=== PATIENT | female | born 1975 | race Caucasian/White ===

== ENCOUNTER 2017-10-13 15:57 | Emergency (ER) | payer OTHER ==
--- NOTE | 2017-10-13 16:18 | PDOC ---
Rapid Medical Evaluation Time Seen by Provider: 10/13/17 16:15 Medical Evaluation: Allergies Allergy/AdvReac Type Severity Reaction Status Date / Time No Known Allergies Allergy Verified 10/13/17 16:14 10/13/17 16:15 I have performed a brief in-person evaluation of this patient. The patient presents with a chief complaint of: at neurology's office for headache. elevated bp in office. sent to ed Pertinent physical exam findings: afebrile, 182/111, hx htn, takes meds daily, no wt change no dosing change, NSR I have ordered the following: cbc, comp, ekg, ua, hcg urine, cxr The patient will proceed to the ED for further evaluation.
[2017-10-13 16:19] VITALS: BMI 30.2
[2017-10-13 16:38] LABS: BASOPHIL 0.8 % (0-2.0); EOSINOPHIL 1.6 % (0-4.5); MCH 31.2 pg (25.7-33.7); MCHC 34.4 g/dl (32.0-36.0); MEAN CELL VOLUME 90.6 fl (80-96); NEUTROPHILS 44.9 % (42.8-82.8); RDW 13.9 % (11.6-15.6); WHITE BLOOD COUNT 7.4 K/mm3 (4.0-10.0)
[2017-10-13 16:44] LABS: URINE APPEARANCE CLEAR; URINE BILIRUBIN NEGATIVE (NEGATIVE); URINE BLOOD NEGATIVE (NEGATIVE); URINE COLOR STRAW; URINE GLUCOSE (UA) NEGATIVE (NEGATIVE); URINE KETONE NEGATIVE (NEGATIVE); URINE NITRITE NEGATIVE (NEGATIVE); URINE PROTEIN NEGATIVE (NEGATIVE); URINE UROBILINOGEN NEGATIVE mg/dL (0.2-1.0)
[2017-10-13 17:36] LABS: PLATELET COUNT 171 K/MM3 (134-434)
[2017-10-13 18:07] LABS: ALBUMIN 4.2 g/dl (3.4-5.0); ANION GAP 9 (8-16); BILIRUBIN,TOTAL 0.3 mg/dL (0.2-1.0); CALCIUM 8.5 mg/dL (8.5-10.1); CO2 26 mmol/L (21-32); CREATININE 0.6 mg/dL (0.55-1.02); GLUCOSE,RANDOM 84 mg/dL (74-106); SGPT/ALT 21 U/L (12-78); TOT PROT 7.8 g/dl (6.4-8.2)
[2017-10-13 18:10] LABS: ALK PHOS 82 U/L (45-117); CPK 100 IU/L (26-192); TROPONIN I < 0.02 ng/ml (0.00-0.05)
[2017-10-13 18:21] LABS: SGOT/AST 18 U/L (15-37)
[2017-10-13 19:39] LABS: URINE LEUK ESTERASE Negative (NEGATIVE)
[2017-10-13] MEDS ORDERED: ACETAMINOPHEN 325 MG TABLET (FP) PO ONE (19:41)
--- NOTE | 2017-10-13 19:42 | PDOC ---
History of Present Illness - General History Source: Patient Exam Limitations: No Limitations - History of Present Illness Initial Comments: 10/13/17 19:54 The patient is a 42 year old female, with a significant past medical history of HTN, asthma, migraines, gastritis and vertigo, who presents to the emergency department with high blood pressure. She reports that she was seeing a neurologist today for a headache that she has been having for the last couple of days. She reports that her headache is currently mild, which she describes as a heavy head sensation at the back of her head. While at the neurologists office the patient's blood pressure was 182/111, prompting the physician to send the patient to the ED. The patient denies chest pain, shortness of breath, and dizziness. Denies fever , chills, nausea, vomit, diarrhea and constipation. Allergies: None Past surgical history: Right ovary removal, tubal ligation Social history: Occasional alcohol use. No tobacco or drug use reported <Sung Hernandez - Last Filed: 10/13/17 19:54> <Rosemarie Miramontes - Last Filed: 10/14/17 03:20> - General Chief Complaint: Blood Pressure Problem Stated Complaint: ELEVATED BP (PCP SENT) Time Seen by Provider: 10/13/17 16:15 Past History <Sung Hernandez - Last Filed: 10/13/17 19:54> - Past Medical History COPD: No Disorders: Yes (gastritis) HTN: Yes Other medical history: migranes/vertigo, sinisitis - Immunization History Immunization Up to Date: Yes - Suicide/Smoking/Psychosocial Hx Smoking History: Never smoked Have you smoked in the past 12 months: No Information on smoking cessation initiated: No Hx Alcohol Use: No Drug/Substance Use Hx: No Substance Use Type: None <Rosemarie Miramontes - Last Filed: 10/14/17 03:20> - Past Medical History Allergies/Adverse Reactions: Allergies Allergy/AdvReac Type Severity Reaction Status Date / Time No Known Allergies Allergy Verified 10/13/17 16:14 Home Medications: Ambulatory Orders Nifedipine [Nifedipine ER] 0 mg PO DAILY 10/13/17 Review of Systems - Review of Systems Able to Perform ROS?: Yes Comments:: 10/13/17 19:54 GENERAL/CONSTITUTIONAL: No fever or chills. No weakness. HEAD, EYES, EARS, NOSE AND THROAT: No change in vision. No ear pain or discharge. No sore throat.- CARDIOVASCULAR: No chest pain or shortness of breath RESPIRATORY: No cough, wheezing, or hemoptysis. GASTROINTESTINAL: No nausea, vomiting, diarrhea or constipation. GENITOURINARY: No dysuria, frequency, or change in urination. MUSCULOSKELETAL: No joint or muscle swelling or pain. No neck or back pain. SKIN: No rash NEUROLOGIC: (+) Headache. No vertigo, loss of consciousness, or change in strength/sensation. ENDOCRINE: No increased thirst. No abnormal weight change HEMATOLOGIC/LYMPHATIC: No anemia, easy bleeding, or history of blood clots. ALLERGIC/IMMUNOLOGIC: No hives or skin allergy. <Sung Hernandez - Last Filed: 10/13/17 19:54> *Physical Exam - Vital Signs Last Vital Signs Temp Pulse Resp BP Pulse Ox 98.2 F 77 16 182/111 100 10/13/17 16:15 10/13/17 16:15 10/13/17 16:15 10/13/17 16:15 10/13/17 16:15 - Physical Exam Comments: 10/13/17 19:54 GENERAL: Awake, alert, and fully oriented, in no acute distress HEAD: No signs of trauma, normocephalic, atraumatic EYES: PERRLA, EOMI, sclera anicteric, conjunctiva clear ENT: Auricles normal inspection, hearing grossly normal, nares patent, oropharynx clear without exudates. Moist mucosa NECK: Normal ROM, supple, no lymphadenopathy, JVD, or masses LUNGS: No distress, speaks full sentences, clear to auscultation bilaterally HEART: Regular rate and rhythm, normal S1 and S2, no murmurs, rubs or gallops, peripheral pulses normal and equal bilaterally. ABDOMEN: Soft, nontender, normoactive bowel sounds. No guarding, no rebound. No masses EXTREMITIES : Normal inspection, Normal range of motion, no edema. No clubbing or cyanosis. NEUROLOGICAL: Cranial nerves II through XII grossly intact. Normal speech, normal gait, no focal sensorimotor deficits SKIN: Warm, Dry, normal turgor, no rashes or lesions noted. <Sung Hernandez - Last Filed: 10/13/17 19:54> - Vital Signs Last Vital Signs Temp Pulse Resp BP Pulse Ox 98.2 F 77 16 182/111 100 10/13/17 16:15 10/13/17 16:15 10/13/17 16:15 10/13/17 16:15 10/13/17 16:15 <KulwinderRosemariekelly Workman - Last Filed: 10/14/17 03:20> ED Treatment Course - LABORATORY CBC & Chemistry Diagram: 10/13/17 16:15 10/13/17 16:15 - ADDITIONAL ORDERS Additional order review: Laboratory Results 10/13/17 10/13/17 16:15 16:15 Sodium 141 Potassium 3.7 Chloride 106 Carbon Dioxide 26 Anion Gap 9 BUN 10 Creatinine 0.6 Creat Clearance w eGFR > 60 Random Glucose 84 Calcium 8.5 Total Bilirubin 0.3 AST 18 ALT 21 Alkaline Phosphatase 82 Creatine Kinase 100 Troponin I < 0.02 Total Protein 7.8 Albumin 4.2 Urine Color Straw Urine Appearance Clear Urine pH 6.0 Ur Specific [place] 1.006 Urine Protein Negative Urine Glucose (UA) Negative Urine Ketones Negative Urine Blood Negative Urine Nitrite Negative Urine Bilirubin Negative Urine Urobilinogen Negative Ur Leukocyte Esterase Negative Urine HCG, Qual Negative 10/13/17 16:15 RBC 4.49 MCV 90.6 MCHC 34.4 RDW 13.9 MPV 12.0 H Neutrophils % 44.9 Lymphocytes % 44.2 H Monocytes % 8.5 Eosinophils % 1.6 Basophils % 0.8 <Sung Hernandez - Last Filed: 10/13/17 19:54> - LABORATORY CBC & Chemistry Diagram: 10/13/17 16:15 10/13/17 16:15 - ADDITIONAL ORDERS Additional order review: Laboratory Results 10/13/17 10/13/17 16:15 16:15 Sodium 141 Potassium 3.7 Chloride 106 Carbon Dioxide 26 Anion Gap 9 BUN 10 Creatinine 0.6 Creat Clearance w eGFR > 60 Random Glucose 84 Calcium 8.5 Total Bilirubin 0.3 AST 18 ALT 21 Alkaline Phosphatase 82 Creatine Kinase 100 Troponin I < 0.02 Total Protein 7.8 Albumin 4.2 Urine Color Straw Urine Appearance Clear Urine pH 6.0 Ur Specific [place] 1.006 Urine Protein Negative Urine Glucose (UA) Negative Urine Ketones Negative Urine Blood Negative Urine Nitrite Negative Urine Bilirubin Negative Urine Urobilinogen Negative Urine HCG, Qual Negative 10/13/17 16:15 RBC 4.49 MCV 90.6 MCHC 34.4 RDW 13.9 MPV 12.0 H Neutrophils % 44.9 Lymphocytes % 44.2 H Monocytes % 8.5 Eosinophils % 1.6 Basophils % 0.8 <Rosemarie Miramontes - Last Filed: 10/14/17 03:20> Medical Decision Making - Medical Decision Making 10/14/17 03:18 This 42-year-old female was sent to the emergency department from her neurologist's office to have her blood pressure treated. Patient has a long-standing history of high blood pressure and also migraines. She states that she takes nifedipine daily for her high blood pressure. She has no fever or chills or nausea or vomiting or visual changes or abdominal pain or chest pain. Patient states that the headache that she saw her neurologist for was her typical migraine headache. Patient was given blood pressure, additional blood pressure medications at her systolic came down to 120s and she was discharged home. She is encouraged to follow-up with her primary care doctor to see if she should have changes in her blood pressure medicines <Rosemarie Miramontes - Last Filed: 10/14/17 03:20> *DC/Admit/Observation/Transfer - Attestations Scribe Attestion: 10/13/17 19:54 Documentation prepared by Sung Hernandez, acting as electromedical service engineer for Rosemarie Miramontes MD <Sung Hernandez - Last Filed: 10/13/17 19:54> <Rosemarie Miramontes - Last Filed: 10/14/17 03:20> Diagnosis at time of Disposition: High blood pressure Qualifiers: Hypertension type: essential hypertension Qualified Code(s): I10 - Essential ( primary) hypertension - Discharge Dispostion Disposition: HOME Condition at time of disposition: Stable - Referrals Referrals: Addis Tenorio MD [Primary Care Provider] - - Patient Instructions Printed Discharge Instructions: DI for High Blood Pressure Additional Instructions: please take your high blood pressure as directed by your doctor Follow up with your doctor to further evaluation your blood pressure Print Language: GEORGIAN - Post Discharge Activity
[2017-10-13] MEDS ORDERED: LABETALOL HCL 100 MG TABLET (FP) PO ONE (19:52)
[2017-10-13] MEDS ORDERED: ACETAMINOPHEN 325 MG TABLET (FP) ONE (20:01)
[2017-10-13] MEDS ORDERED: LABETALOL HCL 100 MG TABLET (FP) ONE (20:02)
[2017-10-13 22:36] VITALS: TEMP 98
[2017-10-13] MEDS ORDERED: cloNIDine HCL 0.1 MG TABLET PO ONE (22:49)
[2017-10-13] MEDS ORDERED: cloNIDine HCL 0.1 MG TABLET ONE (22:52)
[2017-10-14 00:22] VITALS: BP 125/100; PULSE 81
--- NOTE | 2017-10-14 13:03 | EKG ---
Test Reason : Blood Pressure : / mmHG Vent. Rate : 066 BPM Atrial Rate : 066 BPM P-R Int : 122 ms QRS Dur : 092 ms QT Int : 414 ms P-R-T Axes : 043 040 033 degrees QTc Int : 434 ms NORMAL SINUS RHYTHM NORMAL ECG NO PREVIOUS ECGS AVAILABLE Confirmed by CHIN LEVI MD ([id number]) on 10/14/2017 1:02:55 PM Referred By: Confirmed By:CHIN LEVI MD
== END 2017-10-14 00:40 | disposition home or self-care (01) ==
LOC: JER 15:57
DX: I10 Essential (primary) hypertension (principal); G43.909 Migraine, unspecified, not intractable, without status migrainosus; J45.909 Unspecified asthma, uncomplicated; R42 Dizziness and giddiness; K29.70 Gastritis, unspecified, without bleeding
CPT/HCPCS: 36415; 71020-TC; 80053; 81003; 82550; 84484; 84703; 85025; 93005; 93010; 99282-25